=== PATIENT | female | born 1970 | race Caucasian/White ===

== ENCOUNTER 2018-07-22 21:12 | Inpatient (IN) | payer BC ==
[~2018-07-22] VITALS: Ht 152.4 cm; Wt 154.2 kg
--- NOTE | ~2018-07-22 | HC ---
[facility] [place] [address] CONSULTATION Name: REINALDO HANKS Room #: 360-P [facility] IN M.R.#: [id number] Admission: 07/22/18 ������������������ Attend Phys: Stan Basilio MD Discharge: ������������������ Date of : 66 Report #: [id number] THIS REPORT FOR: //name// CC: Jc Basilio REFERRING PHYSICIAN: Dr. Casanova. REASON FOR REFERRAL: Dyspnea. HISTORY OF PRESENT ILLNESS: The patient is a 48-year-old female who presents to the ED with progressive dyspnea. A pulmonary consultation was requested. The patient was in her usual state of health until few days prior to presentation, she started to develop a nonproductive cough with progressive dyspnea. With progressive and worsening of dyspnea, she presents to the Emergency Department. In the ER, the patient's saturation on room air was said to be 54%. Otherwise, no recent febrile illness, sore throat, productive cough, night sweats or chills. Of note, the patient's estimated BMI is around 66. Family notes the patient does snore. She does have trouble with daytime fatigue and sleepiness. PAST MEDICAL HISTORY: Notable for morbid obesity, hypertension. Bilateral tubal ligation, left knee surgery. ALLERGIES: None to medications. HOME MEDICATIONS: List incomplete. FAMILY HISTORY: Noncontributory. SOCIAL HISTORY: The patient has smoked for about 20 years, quit a few years ago. She drinks occasionally. REVIEW OF SYSTEMS: As mentioned above, otherwise 10-point system review negative. PHYSICAL EXAMINATION: GENERAL: She appears mild to moderately dyspneic. She appears sleepy. She was snoring when I entered the room. VITAL SIGNS: Temperature is 101.0 degrees Fahrenheit, pulse is 90, respiratory rate is 20, blood pressure 136/81 mmHg, saturation 94%. [facility] [address] [place] [address] CONSULTATION Name: REINALDO HANKS Room #: 360-P [facility] IN [facility]#: [id number] Admission: 07/22/18 ������������������ Attend Phys: Stan Basilio MD Discharge: ������������������ Date of : 66 Report #: [id number] HEENT: Normocephalic, atraumatic. NECK: Supple, without lymphadenopathy or thyromegaly. CHEST: Breath sounds are distant. No obvious wheezes or rales. CARDIOVASCULAR: Normal S1, S2. There is no murmur or gallop. There is no JVD. There is no carotid bruit. Pulses are 2+/4+ bilaterally. ABDOMEN: Morbidly obese, soft, nontender, no masses felt. GENITOURINARY AND RECTAL: Deferred. EXTREMITIES: Trace edema, no cyanosis or clubbing. NEUROLOGIC: Grossly intact. LABORATORY DATA: Portable chest x-ray and CT chest angiogram reviewed. This shows patchy bilateral infiltrates, greater in the right than the left. Cardiomegaly is present. Pulmonary vascular congestion is also noted. Influenza A and B screen is negative. BNP is 600. D-dimer is slightly elevated at 0.68. Of note, the CT chest angiogram showed no obvious evidence of pulmonary embolus. EKG shows sinus tachycardia, poor R-wave progression. Electrolytes normal. Liver enzymes are grossly unremarkable. WBC 14,500, hemoglobin is fair at 14.9, platelets are normal. Aerial blood gas revealed pH 7.36, pCO2 of 54, pO2 of 126, FiO2 of 100%. IMPRESSION: 1. Acute on chronic hypoxic hypercapnic respiratory failure in this 48-year-old female. Chest x-ray and CT chest shows patchy bilateral infiltrates. She is febrile. Pneumonia is likely. Possible atypical pneumonia. 2. Chronic hypercapnic respiratory failure, morbid obesity. Suspect probable obesity hypoventilation syndrome with sleep apnea. 3. Remote history of tobacco use, cannot rule out possibility of chronic obstructive pulmonary disease. 4. Morbid obesity as mentioned above. Suspect underlying sleep apnea. Would recommend outpatient sleep study. 5. Hypertension. RECOMMENDATION: Agree with broad spectrum antibiotics. DVT and GI prophylaxis recommended. The patient will benefit from outpatient sleep study along with pulmonary functions. Consultation with Bariatric Medicine may also be helpful. Thank you for this consultation. ��������������������������������������������� ���������������������������������������� By: ��������������������������������������������� 1726 1514 Stanton Mora MD /nt
[2018-07-22 21:40] LABS: HEMATOCRIT 46.5 % (37.0-47.0); HEMOGLOBIN 14.9 gm/dL (12.0-15.0); MCH 28.1 pg (26.0-34.0); MCHC 32.1 g/dL (28.0-37.0); MCV 87.8 fL (80.0-100.0); PLATELET COUNT 256 thou/uL (150-400); RDW 14.7 % (10.5-14.5); WBC 14.5 thou/uL (4.0-11.0)
[2018-07-22 21:47] LABS: BE(vivo) 3.5 mmol/L (-2 to +3); HCO3 30.3 mmol/L (22.0-26.0); PCO2 54.3 mmHg (35.0-45.0); PO2 123.2 mmHg (80.0-100.0); pH 7.364 (7.360-7.450); sO2 98.3 % (92.0-98.0)
[2018-07-22 21:50] LABS: ANION GAP 9 mmol/L (7-16); BUN 16 mg/dL (7-18); CALCIUM 9.1 mg/dL (8.5-10.1); CHLORIDE 101 mmol/L (98-107); CO2 30 mmol/L (21-32); CREATININE 0.9 mg/dL (0.6-1.0); GLUCOSE 163 mg/dL (74-106); SODIUM 140 mmol/L (136-145)
[2018-07-22 22:01] LABS: ALBUMIN 3.3 g/dL (3.4-5.0); DIRECT BILIRUBIN 0.1 mg/dL (<0.1-0.3); SGOT 14 U/L (15-37); SGPT 23 U/L (30-65); TOTAL BILIRUBIN 0.6 mg/dL (<0.1-1.0); TOTAL PROTEIN 7.3 g/dL (6.4-8.2); TROPONIN-I <0.06 ng/mL (<0.06)
[2018-07-22 22:39] LABS: ABSOLUTE NEUTROPHILS 12.5 thou/uL (1.4-8.2); ATYPICAL LYMPHS 1 %; NUCLEATED RBCS 1 /100WBC
[2018-07-23] VITALS (8 sets, daily range): BP systolic 114–159; BP diastolic 64–86
[2018-07-23 07:06] LABS: CHOLESTEROL 175 mg/dL (<200); HDL CHOLESTEROL 45 mg/dL (>40); LDL CHOLESTEROL 110 mg/dL (<100); SERUM ASSESSMENT Clear; TC:HDL 3.9 Ratio (Not establshd); TRIGLYCERIDE 100 mg/dL (<150); VLDL 20 mg/dL (<40)
[2018-07-23 23:08] LABS: GLYCOHEMOGLOBIN (HGB A1C) 6.2 % (4.8-5.6)
[2018-07-24 03:39] VITALS: BP 047/92
[2018-07-24 10:48] VITALS: BP 125/73
[2018-07-24 11:34] LABS: BASOPHILS 0.7 % (0.0-2.0); EOSINOPHILS 1.7 % (0.0-3.0); HEMATOCRIT 41.4 % (37.0-47.0); HEMOGLOBIN 13.4 gm/dL (12.0-15.0); LYMPHOCYTES 10.2 % (24.0-44.0); MCH 28.6 pg (26.0-34.0); MCHC 32.4 g/dL (28.0-37.0); MCV 88.4 fL (80.0-100.0); MONOCYTES 7.2 % (1.0-8.0); PLATELET COUNT 283 thou/uL (150-400); POLYS 80.2 % (36.0-66.0); RBC 4.68 mil/uL (4.20-5.00); RDW 14.7 % (10.5-14.5); WBC 9.9 thou/uL (4.0-11.0)
[2018-07-24 11:45] LABS: CALCIUM 9.1 mg/dL (8.5-10.1); CREATININE 0.8 mg/dL (0.6-1.0); POTASSIUM 4.3 mmol/L (3.5-5.1)
--- NOTE | 2018-07-24 13:27 | EKG ---
[place] [address] 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: jacinto : 1970 Requested By: Bouchra Taylor Order Number: [id number] MD: James Mejia Measurements Intervals [place] Rate: 110 P: 54 OK: 168 QRS: 77 QRSD: 90 T: 38 QT: 336 QTc: 455 Interpretive Statements Sinus tachycardia Abnormal R-wave progression, late transition No previous ECG available for comparison Electronically Signed On 07-24-2018 13:26:54 CDT by James Mejia [email or web address] ��������������������������������������������� <ELECTRONICALLY SIGNED> ���������������������������������������� By: James Mejia MD, [facility] ��������������������������������������������� 07/24/18 1326 [id number] James Mejia MD, FACC /EPI
[2018-07-24 16:36] VITALS: BP 131/69
[2018-07-24 19:29] VITALS: BP 150/86
[2018-07-25 04:20] VITALS: BP 129/79
[2018-07-25 05:27] LABS: HEMATOCRIT 43.1 % (37.0-47.0); HEMOGLOBIN 13.8 gm/dL (12.0-15.0); MCH 28.2 pg (26.0-34.0); MCHC 32.1 g/dL (28.0-37.0); RBC 4.9 mil/uL (4.20-5.00); RDW 14.6 % (10.5-14.5); WBC 8.6 thou/uL (4.0-11.0)
[2018-07-25 05:40] LABS: CALCIUM 9.1 mg/dL (8.5-10.1); CREATININE 0.8 mg/dL (0.6-1.0); POTASSIUM 4.7 mmol/L (3.5-5.1)
[2018-07-25 07:35] VITALS: BP 132/78
--- NOTE | 2018-07-25 09:39 | 2DMMODE ---
[facility] [address] [place] [address] 2 D/M-MODE ECHOCARDIOGRAM Name: REINALDO HAKNS Shanice Room #: 360-P [facility] IN .R.#: [id number] ������������� Admission: 07/22/18 ������������� Attend Phys: Stan Basilio MD Discharge: ��� ������������� ��� Date of : 66 Date of Service: 07/25/18 0939 �� Report #: [id number] �������� ��������������������������������������������[id number] THIS REPORT FOR: //name// APPROVED REPORT Study performed: 07/25/2018 08:05:21 EXAM: Comprehensive 2D, Doppler, and color-flow Echocardiogram Patient Location: Bedside Room #: 360 Status: routine BSA: 2.34 HR: 98 bpm BP: 129/79 mmHg Rhythm: NSR Other Information Study Quality: Technically Limited and Technically Difficult Technically limited study due to body habitus, inability to position patient. Indications Hypertension/HDD SOA Echo Enhancing Agent Indication: Endocardial border delineation Agent(s) / Amount(s) Used: Optison 3 cc 2D Dimensions IVSd: 17.43 (7-11mm) LVOT Diam: 21.09 (18-24mm) LVDd: 41.52 mm PWd: 16.71 (7-11mm) Ascending Ao: 29.74 (22-36mm) LVDs: 27.91 (25-40mm) Aortic Root: 30.17 mm Aortic Valve AoV Peak Matthew.: 1.99 m/s AO Peak Gr.: 16.93 mmHg LVOT Max P.70 mmHg LVOT Max V: 1.19 m/s POORNIMA Vmax: 2.09 cm2 Mitral Valve E/A Ratio: 0.8 [facility] [address] [place] [address] 2 D/M-MODE ECHOCARDIOGRAM Name: REINALDO HANKS Room #: 360-P ADM IN ..#: [id number] ������������� Admission: 07/22/18 ������������� Attend Phys: Stan Basilio MD Discharge: ��� ������������� ��� Date of : 66 Date of Service: 07/25/18 0939 �� Report #: [id number] �������� ��������������������������������������������[id number] MV Decel. Time: 233.62 ms MV E Max Matthew.: 1.05 m/s MV A Matthew.: 1.35 m/s MV PHT: 67.75 ms Pulmonary Valve PV Peak Matthew.: 1.37 m/s PV Peak Gr.: 7.52 mmHg Left Ventricle The left ventricle is normal size. There is normal LV segmental wall motion. Moderate to severe concentric left ventricular hypertrophy. The left ventricular systolic function is normal. The left ventricular ejection fraction is within the normal range. LVEF is 65-70%. Mild diastolic dysfunction is present (impaired relaxation pattern). Right Ventricle Right ventricle is not well visualized. Atria Left atrium is not well visualized. Right atrium is not well visualized. Aortic Valve The aortic valve is normal in structure. No aortic regurgitation is present. There is no aortic valvular stenosis. Mitral Valve The mitral valve appears grossly normal in structure. There is no mitral valve regurgitation noted. No evidence of mitral valve stenosis. Tricuspid Valve The tricuspid valve is not well visualized. Pulmonic Valve The pulmonary valve is normal in structure. There is no pulmonic valvular regurgitation noted. Great Vessels The aortic root is normal in size. Ascending aorta is not well visualized. IVC is not visualized. Pericardium There is no pericardial effusion. [facility] [place] [address] 2 D/M-MODE ECHOCARDIOGRAM Name: REINALDO HANKS Shanice Room #: 360-P ADM IN M.R.#: [id number] ������������� Admission: 07/22/18 ������������� Attend Phys: Stan Basilio MD Discharge: ��� ������������� ��� Date of : 66 Date of Service: 07/25/18938 �� Report #: [id number] �������� ��������������������������������������������[id number] <Conclusion> The left ventricular systolic function is normal. There is normal LV segmental wall motion. LVEF is 65-70%. Mild diastolic dysfunction The aortic valve is normal in structure. No aortic regurgitation or stenosis The mitral valve appears grossly normal in structure. No mitral valve regurgitation. Pulmonary artery pressure could not be reliably ascertained There is no pericardial effusion. ��������������������������������������������� <ELECTRONICALLY SIGNED> ���������������������������������������� By: James Mejia MD, [facility] ��������������������������������������������� 07/25/1839 0939 James Mejia MD, FACC /INF
[2018-07-25 11:39] VITALS: BP 147/85
[2018-07-25 16:25] VITALS: BP 133/82
[2018-07-25 20:10] VITALS: BP 141/73
[2018-07-26 05:00] VITALS: BP 135/78
[2018-07-26 05:33] LABS: HEMATOCRIT 43.1 % (37.0-47.0); MCH 28.7 pg (26.0-34.0); MCHC 32.6 g/dL (28.0-37.0); MCV 88.1 fL (80.0-100.0); RBC 4.89 mil/uL (4.20-5.00); RDW 14.5 % (10.5-14.5); WBC 8.2 thou/uL (4.0-11.0)
[2018-07-26 05:49] LABS: CREATININE 0.7 mg/dL (0.6-1.0); POTASSIUM 4.6 mmol/L (3.5-5.1)
[2018-07-26 07:32] VITALS: BP 137/77
[2018-07-26 12:21] VITALS: BP 122/77
[2018-07-26 15:30] VITALS: BP 151/81
[2018-07-26 19:54] VITALS: BP 120/73
[2018-07-27 04:20] VITALS: BP 143/90
[2018-07-27 04:30] VITALS: BP 143/90
[2018-07-27 07:34] VITALS: BP 119/55
[2018-07-27 09:30] LABS: HEMATOCRIT 44.7 % (37.0-47.0); HEMOGLOBIN 14.5 gm/dL (12.0-15.0); MCH 28.3 pg (26.0-34.0); MCHC 32.5 g/dL (28.0-37.0); RBC 5.13 mil/uL (4.20-5.00); RDW 14.6 % (10.5-14.5); WBC 7.8 thou/uL (4.0-11.0)
[2018-07-27 09:40] LABS: CALCIUM 9.1 mg/dL (8.5-10.1); CREATININE 0.8 mg/dL (0.6-1.0); MAGNESIUM 2.3 mg/dL (1.8-2.4); POTASSIUM 4.3 mmol/L (3.5-5.1)
[2018-07-27 12:16] VITALS: BP 132/85
[2018-07-27 16:10] VITALS: BP 120/71
[2018-07-27 19:12] VITALS: BP 126/75
[2018-07-28 03:53] VITALS: BP 124/74
[2018-07-28 05:28] LABS: HEMATOCRIT 44.4 % (37.0-47.0); HEMOGLOBIN 14.3 gm/dL (12.0-15.0); MCH 28.3 pg (26.0-34.0); MCHC 32.1 g/dL (28.0-37.0); RBC 5.05 mil/uL (4.20-5.00); RDW 14.4 % (10.5-14.5); WBC 8.5 thou/uL (4.0-11.0)
[2018-07-28 05:43] LABS: CALCIUM 9.4 mg/dL (8.5-10.1); CREATININE 0.7 mg/dL (0.6-1.0); MAGNESIUM 2.4 mg/dL (1.8-2.4); POTASSIUM 4.1 mmol/L (3.5-5.1)
[2018-07-28 07:23] VITALS: BP 125/71
[2018-07-28 11:24] VITALS: BP 125/77
[2018-07-28] MEDS ORDERED: MUCINEX600 MG PO (12:20)
[2018-07-28] MEDS ORDERED: CEFDINIR300 MG PO (12:20)
[2018-07-28] MEDS ORDERED: LASIX 20 MG TAB20 MG PO (12:20)
[2018-07-28] MEDS ORDERED: VENTOLIN HFA 1818 GM INH (12:21)
[2018-07-28 13:04] VITALS: BP 125/77
[2018-07-28 13:34] VITALS: BP 125/77
[2018-07-28] MEDS ORDERED: HOME OXYGEN (14:13)
[2018-07-28 14:44] VITALS: BP 125/77
== END 2018-07-28 17:34 | disposition home or self-care (01) | DRG 291 ==
LOC: ER 21:12 → EROBS 23:11 → 3W 23:11
PROVIDERS: Emergency Medicine; Internal Medicine; Nurse Practitioner Acute Care; ADMIT Hospitalist
DX: I11.0 Hypertensive heart disease with heart failure (principal); J18.9 Pneumonia, unspecified organism; J96.21 Acute and chronic respiratory failure with hypoxia; J96.22 Acute and chronic respiratory failure with hypercapnia; Z68.44 Body mass index [BMI] 60.0-69.9, adult; I50.33 Acute on chronic diastolic (congestive) heart failure; E66.01 Morbid (severe) obesity due to excess calories; E87.70 Fluid overload, unspecified; G47.33 Obstructive sleep apnea (adult) (pediatric); Z87.891 Personal history of nicotine dependence; Z82.2 Family history of deafness and hearing loss; Z79.899 Other long term (current) drug therapy
CPT/HCPCS: 10879

== ENCOUNTER 2021-04-19 19:18 | Inpatient (IN) | payer BC ==
[~2021-04-19] VITALS: Ht 144.8 cm; Wt 155.3 kg
[~2021-04-19 19:18] MED LIST: CEFDINIR300 MG PO; HOME OXYGEN; LASIX 20 MG TAB20 MG PO; MUCINEX600 MG PO; VENTOLIN HFA 1818 GM INH
[2021-04-19 19:28] VITALS: BP 189/87
[2021-04-19 19:41] LABS: BE(vivo) 3.3 mmol/L (-2 to +3); HCO3 33.4 mmol/L (22.0-26.0); PCO2 74.3 mmHg (35.0-45.0); PO2 95.4 mmHg (80.0-100.0); sO2 96.1 % (92.0-98.0)
[2021-04-19 19:42] LABS: pH 7.271 (7.360-7.450)
[2021-04-19 19:50] LABS: ABSOLUTE NEUTROPHILS 5.1 thou/uL (1.4-8.2); BASOPHILS 3.8 % (0.0-2.0); EOSINOPHILS 0.8 % (0.0-3.0); HEMATOCRIT 52.4 % (37.0-47.0); HEMOGLOBIN 16.9 gm/dL (12.0-15.0); LYMPHOCYTES 9.1 % (24.0-44.0); MCH 27.6 pg (26.0-34.0); MCHC 32.3 g/dL (28.0-37.0); MCV 85.5 fL (80.0-100.0); PLATELET COUNT 243 thou/uL (150-400); POLYS 79.3 % (36.0-66.0); RBC 6.13 mil/uL (4.20-5.00); RDW 16.8 % (10.5-14.5); WBC 6.4 thou/uL (4.0-11.0)
[2021-04-19 21:00] LABS: ALBUMIN 3.2 g/dL (3.4-5.0); CALCIUM 8.2 mg/dL (8.5-10.1); CREATININE 0.5 mg/dL (0.6-1.0); TOTAL BILIRUBIN 0.5 mg/dL (0.2-1.0); TOTAL PROTEIN 6.6 g/dL (6.4-8.2)
[2021-04-19 21:01] LABS: POTASSIUM 5.9 mmol/L (3.5-5.1)
[2021-04-19 23:11] VITALS: BP 153/46
[2021-04-19 23:32] VITALS: BP 136/81
[2021-04-19 23:50] LABS: BE(vivo) 1.6 mmol/L (-2 to +3); HCO3 32.9 mmol/L (22.0-26.0); PO2 78.1 mmHg (80.0-100.0); pH 7.214 (7.360-7.450); sO2 92.3 % (92.0-98.0)
[2021-04-19 23:51] LABS: PCO2 83.3 mmHg (35.0-45.0)
--- NOTE | 2021-04-20 01:21 | NUR ---
PREETI, AND 2 RN'S AT BEDSIDE X45 MINUTES FOR PT EDUCATION ABOUT BIPAP AND IMPORTANCE TO AVOID FURTHER DECOMPENSATION. PT REFUSED. PT PROVIDED OPPORTUNITIES TO ASK QUESTIONS.
--- NOTE | 2021-04-20 01:30 | NUR ---
THIS RN WITNESSED CONVERSATION WITH PATIENT, HER SIGNIFICANT OTHER AND BROCK ÁLVAREZ FACTORY LABORER IN REGARDS TO PLAN OF CARE PATIENT IS ALERT AND ORIENTATED X 4 AT THIS TIME BUT REQUESTS PHONE CONSULTATION WITH HER SIGNIFICANT OTHER TO DISCUSS PLAN OF CARE. BENEFITS AND RISKS ARE DISCUSSED AT [facility] WITH PATIENT AND SIGNIFICANT OTHER ARE ADVISED THAT WITHOUT BIPAP/CPAP OR INTUBATION PATIENT WILL PROBABLY CONTINUE TO DETERIORATE AND SHE WILL PATIENT REFUSED ANY ASSISTED VENTILATION CPAP/BIPAP OR INTUBATION AND VERBALIZES WITH HER SIGNIFICANT OTHERS SUPPORT THAT IF SHE IS UNABLE TO SUPPORT HER AIRWAY SHE ACCEPTS THE CONCEQUENCES ARE WORSENING HEALTH STATUS UP TO AND INCLUDING . FURTHER ATTEMPTS AT AGGRESSIVE AIRWAY MANAGENT ARE CEASED AT THIS TIME
[2021-04-20 05:49] LABS: HEMATOCRIT 50.1 % (37.0-47.0); HEMOGLOBIN 15.7 gm/dL (12.0-15.0); MCH 27.2 pg (26.0-34.0); MCHC 31.4 g/dL (28.0-37.0); MCV 86.8 fL (80.0-100.0); RBC 5.78 mil/uL (4.20-5.00); RDW 16.9 % (10.5-14.5); WBC 6.4 thou/uL (4.0-11.0)
[2021-04-20 06:03] LABS: CALCIUM 8.1 mg/dL (8.5-10.1); CREATININE 0.7 mg/dL (0.6-1.0)
[2021-04-20 06:07] LABS: POTASSIUM 4.4 mmol/L (3.5-5.1)
[2021-04-20 07:13] LABS: BE(vivo) 2.3 mmol/L (-2 to +3); HCO3 33.2 mmol/L (22.0-26.0); PO2 98.6 mmHg (80.0-100.0)
[2021-04-20 07:14] LABS: PCO2 81.4 mmHg (35.0-45.0); pH 7.229 (7.360-7.450)
[2021-04-20 08:29] VITALS: BP 107/62
--- NOTE | 2021-04-20 12:58 | EKG ---
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: GEOFF : 1970 Requested By: Jose Nguyen Order Number: [id number] MD: James Mejia Measurements Intervals [place] Rate: 107 P: 52 [place]: 154 QRS: 116 QRSD: 85 T: 46 QT: 326 QTc: 435 Interpretive Statements Sinus tachycardia Left posterior fascicular block Poor R wave progression Compared to ECG 07/22/2018 21:21:40 [place] is shifted rightward Electronically Signed On 04-20-2021 12:58:39 RIM FIRE CHARGER OPERATOR by James Mejia [email or web address] <ELECTRONICALLY SIGNED> By: James Mejia MD, [facility] 04/20/21 1258 53 53 James Mejia MD, FACC /EPI
[2021-04-20 20:05] VITALS: BP 131/84
[2021-04-20 21:06] VITALS: BP 110/78
[2021-04-20] MEDS ORDERED: LASIX 20 MG TAB20 MG PO (22:21)
[2021-04-20 23:30] VITALS: BP 113/66
[2021-04-21 03:47] VITALS: BP 120/81
--- NOTE | 2021-04-21 06:15 | NUR ---
Arrived from ER at on Optiflow 45L/90% with O2 sat in the low to mid 90's. Once she got situated , O2 sat in the mid to upper 90's. RT titrated her down to 45L/80% this am and has been maintaining her O2 sat in the mid 90's. She does get short of breath with exertion. MRSA swab and urine sample sent to lab. Cont. on enhanced precaution,afebrile. Pt. premedicated as ordered prior to Actemra. Up with SBA to commode. She slept some.
[2021-04-21 07:23] VITALS: BP 124/76
[2021-04-21 07:23] LABS: HEMATOCRIT 50.4 % (37.0-47.0); HEMOGLOBIN 15.3 gm/dL (12.0-15.0); MCH 26.5 pg (26.0-34.0); MCHC 30.3 g/dL (28.0-37.0); MCV 87.6 fL (80.0-100.0); PLATELET COUNT 232 thou/uL (150-400); RBC 5.76 mil/uL (4.20-5.00); RDW 17.1 % (10.5-14.5)
[2021-04-21 07:25] LABS: INR 1.02; PROTIME 11.1 Seconds (10.5-12.1)
[2021-04-21 07:40] LABS: ALBUMIN 2.8 g/dL (3.4-5.0); CALCIUM 8.1 mg/dL (8.5-10.1); CREATININE 0.9 mg/dL (0.6-1.0); POTASSIUM 4.7 mmol/L (3.5-5.1); TOTAL BILIRUBIN 0.3 mg/dL (0.2-1.0); TOTAL PROTEIN 6.2 g/dL (6.4-8.2)
[2021-04-21 10:52] LABS: ABSOLUTE NEUTROPHILS 2.9 thou/uL (1.4-8.2); PLATELET ESTIMATE NORMAL
[2021-04-21 15:45] VITALS: BP 161/99
[2021-04-21 15:46] VITALS: BP 146/101
--- NOTE | 2021-04-21 17:28 | NUR ---
PT A/O X 4. PT UP TO CHAIR FOR FEW HOURS THIS AFTERNOON. PT HAS NO COMPLAINTS OF PAIN. PT ON OPTIFLOW 45L 80% FI02. PT UP TO BSC, AND IS STEADY. PT HAD EXTENSIVE CONVERSATION WITH THIS RN ABOUT PT'S OXYGEN LEVELS AND VACCINATION STATUS. PT NOW INTERSTED IN VACCINATION. FALL PRECAUTIONS IN PLACE, WILL CONTINUE TO MONITOR.
--- NOTE | 2021-04-21 19:07 | HC ---
[facility] [place] [place] [address] CONSULTATION Name: REINALDO HANKS Room #: 358-P [facility] IN M.R.#: [id number] Admission: 04/20/21 Attend Phys: Syeda Cary MD Discharge: Date of : 66 Report #: [id number] THIS REPORT FOR: cc: Stan Rebolledo MD, Kirk D. MD Geha, Daniel J. MD ~ DATE OF SERVICE: 04/20/2021 INFECTIOUS DISEASES CONSULTATION REASON FOR CONSULTATION: I was asked to evaluate concerning COVID-19 pneumonia. HISTORY OF PRESENT ILLNESS: The patient is a 51-year-old, underlying history of morbid obesity, obstructive sleep apnea and congestive heart failure, presents now with a 3-week history of progressive nonproductive cough and shortness of breath. No pleuritic chest pain. She lives in her household with her family and all of which have had respiratory tract infection issues over the last month. She states that they all got better, but she has progressed, presents now with respiratory failure. She has had no pleuritic chest pain or hemoptysis. She has had no nausea, vomiting or diarrhea. No dysuria or frequency. She typically takes low dose of Lasix to control her peripheral edema. She has not been COVID vaccinated. REVIEW OF SYSTEMS: A 14-point review of system was negative other than what has been described above. PAST MEDICAL HISTORY: Morbid obesity, hypertension, pneumonia, congestive heart failure, obstructive sleep apnea. FAMILY HISTORY: Diabetes. SOCIAL HISTORY: Past smoker, no significant alcohol. No HIV risk factors. No tuberculosis exposure. ALLERGIES: None known. MEDICATIONS: As noted on her MAR, which were reviewed. PHYSICAL EXAMINATION: GENERAL: The patient was afebrile and hemodynamically stable. She was on 40 liters of oxygen per high flow. She was sitting up in her chair. She had a nonproductive cough. She was morbidly obese. She has no rashes or decubiti. No palpable adenopathy. HEENT: Eyes without scleral icterus and mouth without mucositis. NECK: Supple. LUNGS: Coarse breath sounds posteriorly without consolidation. [facility] [address] [place] [address] CONSULTATION Name: REINALDO HANKS Shanice Room #: 358-P [facility] IN M.R.#: [id number] Admission: 04/20/21 Attend Phys: Syeda Cary MD Discharge: Date of : 66 Report #: [id number] HEART: Regular without murmur. ABDOMEN: Obese, soft with a large abdominal pannus, which was indurated due to edema. EXTREMITIES: With 1+ peripheral edema in the lower extremities. No clubbing or cyanosis. NEUROLOGIC: Cranial nerves intact. Strength in the upper and lower extremities was symmetric and within normal limits. PSYCHIATRIC: Mood without anxiety or depression. LABORATORY STUDIES: Reviewed. ABG reviewed. IMAGING: CT scan of the chest reviewed. IMPRESSION: A 51-year-old with a 3-week history of progressive respiratory decline due to COVID-19. This is in the setting of underlying obstructive sleep apnea and diastolic heart failure. She has morbid obesity, mild liver enzyme abnormality in a patient, unvaccinated for COVID-19, which puts her at very high risk for further respiratory compromise. She is already on high-flow oxygen. RECOMMENDATION: She is beyond the time that remdesivir will be of benefit. We will treat with corticosteroids and Actemra. Discussed with the patient. PLAN OF CARE: She was in agreement. She will remain on COVID isolation unit for further cardiopulmonary monitoring. Follow serial laboratory studies and chest x-ray. <ELECTRONICALLY SIGNED> By: Oliver Godfrey MD 04/21/21 [id number] Oliver Godfrey MD /nt
[2021-04-21 19:30] VITALS: BP 123/76
[2021-04-22 05:10] VITALS: BP 137/85
[2021-04-22 06:20] LABS: HEMATOCRIT 46.9 % (37.0-47.0); HEMOGLOBIN 14.7 gm/dL (12.0-15.0); MCH 26.8 pg (26.0-34.0); MCHC 31.2 g/dL (28.0-37.0); MCV 85.7 fL (80.0-100.0); PLATELET COUNT 205 thou/uL (150-400); RBC 5.48 mil/uL (4.20-5.00); RDW 16.3 % (10.5-14.5); WBC 2.5 thou/uL (4.0-11.0)
[2021-04-22 06:53] LABS: CALCIUM 8.1 mg/dL (8.5-10.1); CREATININE 0.7 mg/dL (0.6-1.0); MAGNESIUM 2.1 mg/dL (1.8-2.4); PHOSPHORUS 3.3 mg/dL (2.5-4.9)
[2021-04-22 07:50] VITALS: BP 144/94
[2021-04-22 10:55] LABS: ABSOLUTE NEUTROPHILS 1.7 thou/uL (1.4-8.2); ANISOCYTOSIS 1+
[2021-04-22 11:56] VITALS: BP 154/88
[2021-04-22 15:08] LABS: HIV ANTIBODY Non Reactive (Non Reactive)
--- NOTE | 2021-04-22 16:13 | NUR ---
INITIAL ASSESSMENT: SW reviewed chart and spoke with nursing and attending physician. Pt was admitted from home due to respiratory failure. Pt with hx HTN/CHF/obesity. Pt placed in Enhanced Isolation due to COVID. Per chart, pt has not received a COVID vaccination. Pt is afebrile and on optiflow. Pt is on IV abx and IV steorids. SW placed several calls to pt's room. No answer. Per chart, pt is alert/orientated x 4. Pt lives at home with family. Therapy evals to be ordered when pt is able to participate. SW is following to assist as needed with discharge planning.
--- NOTE | 2021-04-22 17:31 | NUR ---
A #4F MIDLINE WAS PLACED FOR IV ACCESS. THE CEPHALIC VEIN VS CATHETER RATIO WAS LESS THAN 28% THE 20CM LINE WAS ADVANCED WITHOUT DIFFICULTY. GAUZE WAS USED AND THE LINE WAS SECURE
[2021-04-22 20:16] VITALS: BP 153/92
[2021-04-23 03:10] LABS: HEMATOCRIT 48.7 % (37.0-47.0); HEMOGLOBIN 15.3 gm/dL (12.0-15.0); MCH 26.8 pg (26.0-34.0); MCHC 31.4 g/dL (28.0-37.0); MCV 85.4 fL (80.0-100.0); RBC 5.7 mil/uL (4.20-5.00); RDW 16.4 % (10.5-14.5); WBC 2.1 thou/uL (4.0-11.0)
[2021-04-23 04:17] LABS: CALCIUM 8.2 mg/dL (8.5-10.1); CREATININE 0.7 mg/dL (0.6-1.0); POTASSIUM 4.2 mmol/L (3.5-5.1)
[2021-04-23 05:41] VITALS: BP 169/108
[2021-04-23 07:37] VITALS: BP 153/99
--- NOTE | 2021-04-23 14:58 | NUR ---
SW reviewed chart and spoke with nursing and attending physician. Pt remains in Enhanced Isolation due to COVID. Pt is afebrile and on optiflow. Pt is on IV abx and IV steroids. SW spoke with pt via phone. Introduced role of SW. Pt appears to be alert/orientated x 4. Pt lives at home with family. Prior to admission, pt was independent with ADLs. No use of DME. No hx of services or post-acute placement. Pt's PCP is Dr. Stan Rebolledo. Plan is for pt to discharge home when medically stable. Therapy evals to be ordered when pt is able to participate. SW is following to assist as needed with discharge planning.
[2021-04-23 15:55] VITALS: BP 152/99
[2021-04-23 18:09] LABS: BE(vivo) 10.3 mmol/L (-2 to +3); HCO3 38.4 mmol/L (22.0-26.0); PCO2 63.6 mmHg (35.0-45.0); PO2 63.1 mmHg (80.0-100.0); pH 7.399 (7.360-7.450); sO2 91.5 % (92.0-98.0)
--- NOTE | 2021-04-23 18:31 | NUR ---
ASSUMED PATIENT CARE AT 0700. PATIENT WAS ON OPTIFLOW AND NRB WITH O2 SAT 90%. CUELLAR INSERTED. PATIENT IS ON 100% BIPAP. UPDATED WITH FAMILY THREE TIMES. NOT TOWARDS POC GOALS,
[2021-04-23 19:33] VITALS: BP 184/92
[2021-04-24] VITALS (42 sets, daily range): BP systolic 109–186; BP diastolic 70–106
--- NOTE | 2021-04-24 02:45 | NUR ---
PT WAS PLACED ON BIPAP DURING DAY SHIFT. 02 SATURATIONS WERE A FIGHT TO KEEP UP ABOVE 90%. PT WOULD FIDGETS WITH MASK AND ALARMS WOULD SOUND. REEDUCATED PT ON MULTIPLE OCCASIONS ABOUT IMPORTANCE. BODY MECHANICS WHEN SLEEPING WOULD ALSO HINDER. NATY ADDED TO SITUATION. DR. SUH WHEN ROUNDING SAID PT SHOULD BE MOVED TO ICU. CONSULTED WITH OCEAN EXPORT AGENT ABOUT SITUATION. DISCUSSED WITH PT ABOUT LIMITATIONS WITH DNR. PT AGREED TO CHANGE STATUES TO FULL CODE. SPOKE TO DR. BAKER ALSO. RECEIVED ORDERS TO MOVE PT TO ICU AND ORDERED AM CHEST X-RAY. 0200 CALLED REPORT AND MOVED PT TO ICU.
[2021-04-24 05:18] LABS: HEMOGLOBIN 15.1 gm/dL (12.0-15.0)
[2021-04-24 05:21] LABS: HEMATOCRIT 46.9 % (37.0-47.0); MCH 26.9 pg (26.0-34.0); MCHC 32.1 g/dL (28.0-37.0); MCV 83.9 fL (80.0-100.0); RBC 5.59 mil/uL (4.20-5.00); RDW 16.3 % (10.5-14.5)
[2021-04-24 05:39] LABS: WBC 1.8 thou/uL (4.0-11.0)
[2021-04-24 05:49] LABS: CALCIUM 8.1 mg/dL (8.5-10.1); CREATININE 0.7 mg/dL (0.6-1.0); POTASSIUM 3.9 mmol/L (3.5-5.1)
--- NOTE | 2021-04-24 06:46 | NUR ---
ASSUME CARE 0250 FROM [facility]. PT ON BIPAP AT 100% FIO2. A/O X 4. DENIES ANY PAIN. POOR TOLERANCE TO ATIVITY. SOB NOTED WITH EXERTION. PT ALSO HAS ANXIETY WHICH CONTRIBUTES GREATY TO HER DYSPNEA. ON PRECEDEX TO HELP PT TOLERATE BIPAP. SETTINGS CHANGED ON BIPAP FROM / TO 18/ AND PT STILL SATS ABOUT 87%-90%. ASSESSMENT CHARTED. PROGRESSING POORLY TOWARDS POC. PLAN IS TO CONTINUE TO MONITOR AND MANAGE RESP FUNCTION. WILL CONTINUE TO MONITOR AND FOLLOW WITH POC
--- NOTE | 2021-04-24 08:19 | EKG ---
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
--- NOTE | 2021-04-24 08:20 | EKG ---
[place] [address] [facility] [place] [address] ELECTROCARDIOGRAM REPORT Name: AKIN HANKSSHANTA Prasad Room #: 243-P ADM IN M.R.#: [id number] Admission: 04/20/21 Attend Phys: Syeda Cary MD Discharge: Date of : 66 Report #: [id number] [facility] ED Test Date: 2021-04-20 Test Time: 11:43:26 Pat Name: REINALDO HANKS Department: Room: 243 P Gender: F Head Up Operator: LUIGI : 1970 Requested By: Tomas Gómez Order Number: [id number] MD: Measurements Intervals [place] Rate: 83 P: 69 ID: [id number] QRS: 132 QRSD: 90 T: 16 QT: 399 QTc: 469 Interpretive Statements Sinus rhythm Paired ventricular premature complexes ST depr, consider ischemia, inferior leads,Minimal ST elevation, lateral leads Compared to ECG 04/19/2021 19:54:40 Ventricular premature complex(es) now present Aberrant conduction of supraventricular beat(s) now present Electronically Signed On 04-21-2021 12:46:21 PEST CONTROL PILOT by Bobby Massey [email or web address] By: 1246 1143 Bobby Massey MD, FACC /EPI
--- NOTE | 2021-04-24 08:44 | NUR ---
SPOKE WITH PT THIS MORNING OVER THE PHONE, HE WAS UNDER THE IMPRESSION PT WAS GOING TO GET INTUBATED OVERNIGHT AND THAT DID NOT HAPPEN. PT REMAINS ON BIPAP AT THIS TIME, I HELPED ANSWER QUESTIONS HE HAD ABOUT HER CURRENT STATE, AND ASKED HIM IF IT WAS OK IF THE NEED AROSE IF THE MEDICAL TEAM COULD INTUBATE HER, HE WAS AGREEABLE TO IT BEFORE IT WAS "TOO LATE" HOWEVER, HE ALSO INSISTED THAT WE SPEAK TO HER ABOUT IT BEFOREHAND. I ASKED HER ABOUT THIS MORNING AND SHE SAID TO ASK HER AND FAMILY. I INFORMED HIM THAT I WOULD ASK ONE OF THE DOCTORS TO GIVE HIM AND THIER FAMILY A CALL REGARDING HER STATUS. WILL CONTINUE TO FOLLOW POC. PT CURRENT OXYGEN SATURATION IS BETWEEN 84-87% ON 100% BIPAP SETTINGS OF 18/10.
[2021-04-24 08:45] LABS: T-SPOT.TB Negative
--- NOTE | 2021-04-24 12:52 | NUR ---
SPOKE WITH PATIENT MARICRUZ WEAVER AT 1230 THIS AFTERNOON OVER THE PHONE, ANSWERED HER QUESTIONS AND UPDATED HER ON HER CURRENT VITALS. INFORMED HER AND PATIENTS WHO WAS ALSO ON THE PHONE THAT PATIENT IS NOT PRESENTLY INTUBATED AND IT IS STILL POSSIBILITY OF HER NEEDING IT SOONER THAN LATER. WAS ABLE TO TALK TO DR. BAKER DURING ROUNDING AND DR. ORANTES THIS AFTERNOON. BOTH STATED THAT THEY WOULD SPEAK TO EITHER THE PATIENT OR FAMILY ONCE AGAIN ABOUT PATIENT NEEDING INTUBATION SOONER RATHER THAN LATER. WAS ALSO ABLE TO HAVE IV TEAM RN ASSESS PT MIDLINE CATH IN RIGHT UPPER ARM. SHE WAS AGREEABLE THAT PT NEEDS TO HAVE A CENTRAL LINE PLACED INSTEAD. WILL ASK FOR PERMISSION TO PLACE THAT ORDER FROM MD. WILL CONTINUE TO FOLLOW POC. PT CURRENTLY RESTING COMFORTABLY WITH OXYGEN SATURATION OF 88% HR 66. BIPAP SETTINGS 18/10 100% FIO2.
--- NOTE | 2021-04-24 15:19 | NUR ---
SPOKE WITH PT REGARDING DESIRES TO BE FULL CODE AND DESIRES FOR POSSIBLE INTUBATION AT THIS TIME SHOULD THE NEED TO ARISE AND PATIENT WAS VERBALLY AGREEABLE TO BOTH. DR. ORANTES NOTIFIED VIA PHONE WHO INSTRUCTED ME TO CONTACT DR. BAKER REGARDING PT WISHES FOR INTUBATION. VOICEMAIL LEFT FOR DR. BAKER. WILL CONTINUE TO FOLLOW POC AND PATIENT WISHES.
--- NOTE | 2021-04-24 16:08 | NUR ---
A RIGHT IJ CENTRAL LINE WAS PLACED AFTER CONSENT OBTAINED. LINE PLACED PER HOSPITAL POLICY. THE 25CM LINE WAS ADVANCED TO 7CM EXTERNAL. A STAT CHEST XRAY WAS ORDERED TO CONFIRM PLACEMENT
--- NOTE | 2021-04-24 16:31 | NUR ---
PT BELONGINGS GIVEN TO PATIENT IN THE ER. VERIFIED ID VIA DRIVERS LICENSE. PURSE, WALLET, FEMALE PADS, WATER BOTTLE, DEODARANT. PT STILL HAS POSSESSION OF HER CELL PHONE, CAN NOT FIND PHONE CERTIFIED PROFESSIONAL MIDWIFE, PT ALSO HAS HER SHOES IN THE PT LOCKER IN ROOM 243.
--- NOTE | 2021-04-24 17:48 | NUR ---
DR. BAKER AT BEDSIDE AT 1700 ALONG WITH RT AND NURSING STAFF TO ASSIST IN INTUBATION OF THE PATIENT. AT 1715 60MG/3ML OF SUCCINYLCHOLINE GIVEN VIA IV-PUSH FOLLOWED BY 60MG/30ML ETOMIDATE IV-PUSH WITH NACL FLUSHES GIVEN BETWEEN MEDS. AT 1718 PT WAS INTUBATED WITH 7.5 ET TUBE WITH GOOD COLOR CHANGE VIA CAPNOGRAPHY, TUBE RESTING AT 24 @THE LIP. GLIDASCOPE WAS USED DURING PROCEDURE. AT 1719 4MG/4ML VERSED GIVEN FOR SEDATION. PT PLACED IN BILATERAL WRIST RESTRAINTS AT THIS TIME. OG TUBE ALSO PLACED 70 AT THE LIP. PT VENT SETTINGS VC-AC RR 28 FIO2 100% PEEP 12 VT 450
[2021-04-24 18:46] LABS: BE(vivo) 13.4 mmol/L (-2 to +3); HCO3 38.5 mmol/L (22.0-26.0); PCO2 47.3 mmHg (35.0-45.0); PO2 64.6 mmHg (80.0-100.0); pH 7.528 (7.360-7.450); sO2 94.4 % (92.0-98.0)
[2021-04-25] VITALS (46 sets, daily range): BP systolic 93–188; BP diastolic 51–104
[2021-04-25 04:11] LABS: ABSOLUTE NEUTROPHILS 1.6 thou/uL (1.4-8.2); BASOPHILS 0.7 % (0.0-2.0); HEMOGLOBIN 16.2 gm/dL (12.0-15.0); LYMPHOCYTES 27.9 % (24.0-44.0); MCH 26.4 pg (26.0-34.0); MCHC 31.7 g/dL (28.0-37.0); MCV 83.1 fL (80.0-100.0); MONOCYTES 12.4 % (1.0-8.0); PLATELET COUNT 142 thou/uL (150-400); RBC 6.14 mil/uL (4.20-5.00); RDW 16.2 % (10.5-14.5); WBC 2.8 thou/uL (4.0-11.0)
[2021-04-25 04:40] LABS: ALBUMIN 2.8 g/dL (3.4-5.0); CALCIUM 7.9 mg/dL (8.5-10.1); CREATININE 0.9 mg/dL (0.6-1.0); POTASSIUM 3.7 mmol/L (3.5-5.1); TOTAL BILIRUBIN 0.8 mg/dL (0.2-1.0)
--- NOTE | 2021-04-25 07:19 | NUR ---
ASSUME CARE 1900. PT/VITALS STABLE. NAP NOTED THROUGH THE NIGHT/ PT INTUBATED/SEDATED. ASSESSMENT CHARTED. POOR PROGRESS WITH POC. SR ONMONITOR. SOMETIMES PT MIAN'S DOWN TO 58-59BPM, BUT IS MOSTLY SINUS RHTHM ON MONITOR. DESATS WITH TURNS OR SUCTION, EASILY. NOTED ACTIVE BLEEDING, HGB 16.1 THIS AM. EXTREMITIES APPEAR CYANOTIC AND DULL.ON 100% FIO2 WITH SATS IN THE LOW 90s (92% SPO2 MAX). THIS AM PT IS AT 88% AT FIO2 100%. PLAN IS TO CONTINUE TO MONITOR AND MANAGE RESPIRATORY FUNCTION/COVID PNA. WILL CONTINUE TO FOLLOW WITH POC
[2021-04-25 09:10] LABS: BE(vivo) 11.5 mmol/L (-2 to +3); HCO3 36.1 mmol/L (22.0-26.0); PO2 58.8 mmHg (80.0-100.0); pH 7.522 (7.360-7.450); sO2 92.8 % (92.0-98.0)
--- NOTE | 2021-04-25 16:58 | NUR ---
Discussed during unit round and los. Vent, nutritional support. Covid isolation. No anticipated dc over the weekend. Will cont following as needed.
--- NOTE | 2021-04-25 17:35 | NUR ---
PT HAS HAD NO EVENTS TODAY, IS MAINTAINING OXYGEN WELL. DECREASED FIO2 FROM 100% TO 90% TODAY. FENTANYL, VERSED AND PRECEDEX REMAIN ON BOARD WITH GOOD RESULTS. PATIENT HAS GOOD URINE OUTPUT, CONTINUES TO BLEED FROM IV ACCESS SITES AND REMAINS ON LOVENOX 60MG BID. PT MAY BENEFIT FROM NUTRITION, REMAINS IN RESTRAINTS. WILL CONTINUE TO FOLLOW POC.
--- NOTE | 2021-04-25 22:28 | NUR ---
2129-SPUTUM C&S SENT-LG AMT THIN, VERY BLOODY SPUTUM.--VW 2229-SPOKE Guy MARROQUIN NP RE:TEMP,NEED FOR TYLENOL, ? CX'S, ETC. WILL PUT IN ORDERS.--VW
[2021-04-26] VITALS (27 sets, daily range): BP systolic 113–197; BP diastolic 70–102
[2021-04-26 06:30] LABS: HEMATOCRIT 51.3 % (37.0-47.0); HEMOGLOBIN 16.4 gm/dL (12.0-15.0); MCH 26.2 pg (26.0-34.0); MCHC 31.9 g/dL (28.0-37.0); MCV 82.1 fL (80.0-100.0); PLATELET COUNT 132 thou/uL (150-400); RBC 6.25 mil/uL (4.20-5.00); RDW 16.1 % (10.5-14.5); WBC 2.8 thou/uL (4.0-11.0)
[2021-04-26 06:50] LABS: ALBUMIN 2.8 g/dL (3.4-5.0); CALCIUM 7.8 mg/dL (8.5-10.1); CREATININE 0.6 mg/dL (0.6-1.0); POTASSIUM 3.6 mmol/L (3.5-5.1); TOTAL BILIRUBIN 0.8 mg/dL (0.2-1.0); TOTAL PROTEIN 5.6 g/dL (6.4-8.2)
[2021-04-26 09:55] LABS: ABSOLUTE NEUTROPHILS 1.8 thou/uL (1.4-8.2)
[2021-04-26 09:56] LABS: ANISOCYTOSIS 1+
--- NOTE | 2021-04-26 10:31 | NUR ---
SPOKE WITH DAUGHTER AND , PROVIDED PATIENT UPDATE. ANSWERED ALL QUESTIONS AT THIS TIME.
--- NOTE | 2021-04-26 12:31 | NUR ---
poc blood glucsoe scanned on wrong patient by sohail RN - follow up glucose taken on correct patient account
--- NOTE | 2021-04-26 13:19 | NUR ---
NOTIFIED DR. ORANTES AND DR. SWENSON ON CONTINUED NOSE BLEED. ORDERS TO PLACE LOVENOX ON HOLD.
[2021-04-27] VITALS (14 sets, daily range): BP systolic 124–197; BP diastolic 88–113
--- NOTE | 2021-04-27 04:49 | NUR ---
Gina0-[facility] UPDATED.--VW NOT PROGRESSING TOWARD GOALS. BREAKS THRU SEDATION, MYNOR W MOUTH CARE. LG AMT OLD BLOOD W Q MOUTH SWAB. HI LO SX CONT'S TO PUT OUT DK BLOODY DRAINAGE. CLEARED SEV X'S THRU OUT SHIFT. MUSTACH DRSG INTACT,SL SHADOWING ONLY.CONT'S TO DESAT W ANY CARE GIVEN.LABS SENT.--VW
[2021-04-27 05:56] LABS: HEMATOCRIT 50.1 % (37.0-47.0); HEMOGLOBIN 15.8 gm/dL (12.0-15.0); MCH 26.1 pg (26.0-34.0); MCHC 31.4 g/dL (28.0-37.0); MCV 83.1 fL (80.0-100.0); RBC 6.03 mil/uL (4.20-5.00); RDW 16.4 % (10.5-14.5); WBC 3.5 thou/uL (4.0-11.0)
[2021-04-27 05:58] LABS: CALCIUM 7.8 mg/dL (8.5-10.1); CREATININE 0.6 mg/dL (0.6-1.0); POTASSIUM 3.7 mmol/L (3.5-5.1)
--- NOTE | 2021-04-27 14:55 | NUR ---
PT'S CALLED THIS MORNING WANTING UPDATES, RN PROVIDED UPDATES REGARDING CURRENT PT'S STATUS WELL CLINICAL PRESENTATION. PT'S VENTILATOR SETTING (1O0 FIO2/PEEP 12) EXPLAINED, WHEN ASKED WHY THE PNA ISN'T GOING AWAY, RN EXPLAINED COVID IS A VIRAL INFECTION. INTERDRY WAS PLACED IN THE PT'S PANUS, AT THE TIME OF INTERVENTION PT WAS LAID FLAT IN ORDER TO FACILITATE THE WEIGHT OF THE PANUS, PT WAS FOUND TO BECOME HYPOXIC AT THAT TIME DESATTING TO MID 80s THEN SLOW TO GET BACK UP, PT ALSO HAD A NON PRECEPITATED HYPOXIC EPISODE THIS MORNING. ORAL/NASAL BLEEDING APPEARS TO HAVE HALTED AT THIS TIME. SPOKE WITH MD, BELIEVES MAY BE RELATED TO EPISTAXIS, CONTINUING TUBE FEEDING PER FRONT OFFICE MEDICAL ASSISTANT RECOMMENDATIONS. PT HYGEINE KEPT BEST POSSIBLE GIVEN PT'S DIFFICULT SITUATION/SENSITIVITY TO MOVEMENT, PANUS WAS CLEANED, BREAST FOLDS WERE CLEANED BUT ASSESSING PT'S POSETERIOR SIDE IS PROVEN VERY DIFFICULT FOR THE MOMENT. GIVEN PT'S 100% FIO2 AND PEEP OF 12, SLOW TO GET O2 SAT BACK UP, SEDATION VACATION WAS NOT PERFORMED IN PRECAUTION OF BAROTRAUMA
[2021-04-28] VITALS (23 sets, daily range): BP systolic 107–174; BP diastolic 71–107
[2021-04-28 04:58] LABS: HEMOGLOBIN 16.2 gm/dL (12.0-15.0); MCH 26.3 pg (26.0-34.0); MCHC 31.8 g/dL (28.0-37.0); MCV 82.8 fL (80.0-100.0); RBC 6.16 mil/uL (4.20-5.00); RDW 16.5 % (10.5-14.5)
[2021-04-28 05:06] LABS: CALCIUM 7.7 mg/dL (8.5-10.1); CREATININE 0.6 mg/dL (0.6-1.0); POTASSIUM 4.2 mmol/L (3.5-5.1)
--- NOTE | 2021-04-28 12:33 | NUR ---
RN SPOKE WITH PT FAMILY. PT CALLED AND RN GAVE UPDATE AND ANSWERED AND QUESTIONS HE HAD. THERE WERE OTHER FAMILY MEMBERS ON THE PHONE LISTENING WELL. PT VENT AT 100% FIO2 SATTING 88-94%. PT NOT TOLERATING TURNS AT THIS TIME. RN READJUST PT. STARTED TUBE FEEDS AT 1100. STARTED RATE AT 10ML/HR. WILL MONITOR TO MAKE SURE PT IS TOLERATING TUBE FEEDS. DR SWENSON ORDERED BOWEL REGIMEN FOR PT SINCE NO BM SINCE 04/23. BELLY IS NOT FIRM. RN WILL CONTINUE TO MONITOR PT AND FOLLOW PLAN OF CARE
[2021-04-28 21:46] LABS: URINE BILIRUBIN NEGATIVE (Negative); URINE BLOOD NEGATIVE (Negative); URINE CLARITY CLEAR; URINE COLOR YELLOW; URINE GLUCOSE-RANDOM* NEGATIVE (Negative); URINE KETONES NEGATIVE (Negative); URINE LEUKOCYTES-REFLEX NEGATIVE (Negative); URINE NITRITE-REFLEX NEGATIVE (Negative); URINE PROTEIN (DIPSTICK) NEGATIVE (Negative); URINE SPECIFIC GRAVITY 1.025 (1.005-1.035)
[2021-04-29] VITALS (35 sets, daily range): BP systolic 107–149; BP diastolic 59–92
[2021-04-29 06:03] LABS: HEMATOCRIT 50.6 % (37.0-47.0); HEMOGLOBIN 15.8 gm/dL (12.0-15.0); MCH 26.2 pg (26.0-34.0); MCHC 31.3 g/dL (28.0-37.0); MCV 83.6 fL (80.0-100.0); RBC 6.05 mil/uL (4.20-5.00); WBC 10.8 thou/uL (4.0-11.0)
[2021-04-29 07:03] LABS: CALCIUM 7.8 mg/dL (8.5-10.1); CREATININE 0.8 mg/dL (0.6-1.0); POTASSIUM 4.4 mmol/L (3.5-5.1)
--- NOTE | 2021-04-29 20:05 | NUR ---
family updated. pt not tolerating turns at this moment. pt sedated with precedex, fentanyl and versed. pt on 100 fio2 and peep 14. no successful vent weaning today. pt spo2 at 93-94% throughout the day. urine output adequate. continue to monitor.
[2021-04-30] VITALS (48 sets, daily range): BP systolic 88–122; BP diastolic 48–69
--- NOTE | 2021-04-30 05:36 | NUR ---
PT REMAINS SEDATED WITH PRECEDEX, VERSED, AND FENTANYL. PRECEDEX GTT TITRATED DOWN SLIGHTLY; PT TOLERATED WELL WITH NO SIGNIFICANT CHANGE IN V/S OR RESP STATUS. TOLERING TF BETTER THIS SHIFT, WITH MOST RECENT RESIDUAL 200ML. TF RATE INCREASED TO 25ML/HR (GOAL RATE OF 45ML/HR). PT CONTINUES TO HAVE SMALL AMOUNT BLOOD-TINGED SECRETIONS FROM ETT. SOME BLOODY SECRETIONS NOTED IN BACK OF MOUTH WHEN ORAL CARE WAS PROVIDED. PT FEBRILE OVER NIGHT. TYLENOL GIVEN. ICE PACKS APPLIED TO AXILLA. WILL MONITOR FURTHER. NOT PROGRESSING WELL TOWARD POC GOALS.
[2021-04-30 05:41] LABS: HEMATOCRIT 47.3 % (37.0-47.0); HEMOGLOBIN 14.6 gm/dL (12.0-15.0); MCH 25.6 pg (26.0-34.0); MCHC 30.7 g/dL (28.0-37.0); MCV 83.2 fL (80.0-100.0); RBC 5.69 mil/uL (4.20-5.00); RDW 16.7 % (10.5-14.5); WBC 13.8 thou/uL (4.0-11.0)
[2021-04-30 05:45] LABS: CREATININE 0.7 mg/dL (0.6-1.0); POTASSIUM 4.7 mmol/L (3.5-5.1)
--- NOTE | 2021-04-30 09:30 | NUR ---
PLACED PT BACK IN BILATERAL SOFT WRIST RESTRAINTS AT 0900. PT IS BECOMING BORDERLINE HYPOTENSIVE AT THIS TIME AND MAY NEED TO START DECREASING SEDATION IN ORDER TO BRING BLOOD PRESSURE BACK UP OR START PT ON VASSOPRESSOR. WILL ATTEMPT TO DECREASE SOME SEDATION TO SEE IF RAISES BP, WILL ALSO ASK ABOUT DURING PT ROUNDING WELL. WILL CONTINUE TO MONITOR AND REASSESS BP AND NEED FOR RESTRAINTS. TUBE FEEDING ALSO TURNED DOWN TO 10ML/HR PT CONTINUES TO HAVE HIGH RESIDUALS WITH 350ML THIS MORNING AT A RATE OF 25ML/HR.
--- NOTE | 2021-04-30 12:14 | NUR ---
PT CONTINUES TO HAVE BRIGHT RED BLOOD COME UP VIA SUCTIONING THROGH THE INLINE SUCTION TUBING WELL BLOOD SECRECTIONS FROM MOUTH. PROVIDERS AWARE, LOVENOX ON HOLD. SCDS ARE ALSO OFF THE PATIENT DUE TO UNDERLYING HX OF PVD TO HER LOWER EXTREMITIES.
[2021-04-30 16:56] LABS: APTT 25.3 Seconds (24.5-32.8); D-DIMER 8.21 ug/mLFEU (0.19-0.50); INR 1.1; PROTIME 11.9 Seconds (10.5-12.1)
[2021-05-01] VITALS (48 sets, daily range): BP systolic 95–119; BP diastolic 55–71
[2021-05-01 05:05] LABS: HEMATOCRIT 45.3 % (37.0-47.0); HEMOGLOBIN 13.8 gm/dL (12.0-15.0); MCH 25.7 pg (26.0-34.0); MCHC 30.4 g/dL (28.0-37.0); MCV 84.5 fL (80.0-100.0); RBC 5.35 mil/uL (4.20-5.00); RDW 16.6 % (10.5-14.5); WBC 15.5 thou/uL (4.0-11.0)
[2021-05-01 05:06] LABS: CALCIUM 7.7 mg/dL (8.5-10.1); CREATININE 0.8 mg/dL (0.6-1.0); POTASSIUM 4.3 mmol/L (3.5-5.1)
--- NOTE | 2021-05-01 07:25 | NUR ---
pt is slowly progressing towards plan of care as evidenced by minimal motor response and ability to open her eyes. pt does not however follow commands. she is still vent dependent for o2 support.
--- NOTE | 2021-05-01 21:59 | NUR ---
Pt's , Camden Mendez, called at 2100, he was updated about the pt's condition, and educated on her plan of care.
[2021-05-02] VITALS (22 sets, daily range): BP systolic 110–151; BP diastolic 58–92
[2021-05-02 05:21] LABS: CALCIUM 8.2 mg/dL (8.5-10.1); CREATININE 0.6 mg/dL (0.6-1.0); POTASSIUM 4.5 mmol/L (3.5-5.1)
[2021-05-02 05:23] LABS: HEMATOCRIT 44.3 % (37.0-47.0); HEMOGLOBIN 13.8 gm/dL (12.0-15.0); MCH 26.4 pg (26.0-34.0); MCHC 31.3 g/dL (28.0-37.0); MCV 84.2 fL (80.0-100.0); RBC 5.26 mil/uL (4.20-5.00); RDW 17.3 % (10.5-14.5); WBC 13.3 thou/uL (4.0-11.0)
--- NOTE | 2021-05-02 07:10 | NUR ---
pt is not progressing towards plan of care as evidenced by inability to tolerate turns. pt opens eyes. +ve cough/gag reflex. minimal blood tinged secretions upon oral care and suction. pt does not follow command. pt is still mechanical support dependent for optimal o2 saturation
--- NOTE | 2021-05-02 16:43 | NUR ---
Case discussed with the care team and [employer]. Pt's spouse was updated this am and family has been checking on her daily. Pt continues to need 95%FIO2 and a peep of 14 (vent support). She remains in enhanced ISO. Message sent to the attending request physician call to pt's spouse with update. Dc planning needs are uncertain at this time. Will continue to follow for support.
--- NOTE | 2021-05-02 20:43 | NUR ---
Pt's daughter, Roxie Mendez and , Camden Mendez called at 1999. They were updated on the pt's condition and her plan of care. They expressed desire to come visit the pt tomorrow 05/03/21, since the pt will be out of isolation.
[2021-05-03] VITALS (20 sets, daily range): BP systolic 110–147; BP diastolic 67–91
[2021-05-03 06:01] LABS: HEMATOCRIT 47.4 % (37.0-47.0); HEMOGLOBIN 14.7 gm/dL (12.0-15.0); MCH 26.3 pg (26.0-34.0); MCV 84.8 fL (80.0-100.0); RBC 5.6 mil/uL (4.20-5.00); RDW 16.5 % (10.5-14.5)
[2021-05-03 06:26] LABS: CALCIUM 8.4 mg/dL (8.5-10.1); CREATININE 0.5 mg/dL (0.6-1.0); POTASSIUM 4.1 mmol/L (3.5-5.1)
--- NOTE | 2021-05-03 10:43 | NUR ---
CALLED AND SPOKE TO THE FAMILY THIS MORNING AT 1030, SPOKE TO AND DAUGHTER VIA THE PHONE. DISCUSSED WITH THE FAMILY THAT IT IS STILL TOO SOON FOR THEM TO COME AND VISIT AT THIS TIME THEY WERE TOLD THEY COULD COME AND VISIT TODAY. ACCORDING TO PROTOCOL PT IS TO REMAIN IN ISOLATION FOR 21 DAYS AFTER TESTING POSITIVE. PT TESTED POSITIVE 04/19 AND SHOULD REACH THE 21 DAY FREDDIE 05/09. FAMILY WAS UNDERSTANDING. PROVIDED UPDATES TO THE FAMILY. WILL CONTINUE TO FOLLOW POC.
--- NOTE | 2021-05-03 16:27 | NUR ---
PT NOT PROGRESSING TOWARDS DISCHARGE GOALS. CONTINUES TO BLEED AFTER SUCTIONING. PT ALSO CONTINUES TO HAVE HIGH RESIDUALS FROM HER TUBE FEEDS WHICH HAVE A GOAL RATE OF 45 HOWEVER, HAVE ONLY BEEN ABLE TO RUN AT RATE OF 20-25ML/HR WITH RESIDUALS RANGING BETWEEN 250-400. PT PRESENTLY TOLERATING TIRTRATING VENTILATOR FIO2 TO 80% WITH OXYGEN SATURATION OF 95%.
--- NOTE | 2021-05-03 17:58 | NUR ---
WHILE TURNING AND CLEANING PATIENT THIS EVENING NOTICED PT IS STARTING TO DEVELOP SMALL SKIN TEARS TO THE LOWER BACK/TAILBONE. ANTISEPTIC SPRAY APPLIED AND BARRIER CREAM ALSO APPLIED TO THE SITE. PT ALSO APPEARS TO BE MENSTRATING AT THIS TIME BLOOD APPEARED TO BE COMING FROM VAGINA AREA. ALSO SAID EARLIER THIS MORNING OVER THE PHONE PT HAD HAD HEMORRHOIDS PRIOR TO HOSPITAL ADMISSION. WILL PASS ALONG ALL FINDINGS TO BOX LINER RN.
[2021-05-04] VITALS (24 sets, daily range): BP systolic 110–157; BP diastolic 68–90
--- NOTE | 2021-05-04 04:45 | NUR ---
NOTED BLOOD DURING TURN AROUND VAGINAL AREA. DAY SHIFT NURSE ALSO NOTED SMALL AMOUNT OF BLOOD IN SAME AREA.
[2021-05-04 05:14] LABS: HEMATOCRIT 44.7 % (37.0-47.0); HEMOGLOBIN 13.6 gm/dL (12.0-15.0); MCH 25.8 pg (26.0-34.0); MCHC 30.5 g/dL (28.0-37.0); MCV 84.6 fL (80.0-100.0); RBC 5.29 mil/uL (4.20-5.00); RDW 16.7 % (10.5-14.5); WBC 11.7 thou/uL (4.0-11.0)
[2021-05-04 05:23] LABS: ALBUMIN 2.7 g/dL (3.4-5.0); CALCIUM 8.4 mg/dL (8.5-10.1); CREATININE 0.6 mg/dL (0.6-1.0); PHOSPHORUS 4.7 mg/dL (2.5-4.9); POTASSIUM 4.1 mmol/L (3.5-5.1)
--- NOTE | 2021-05-04 10:58 | NUR ---
WHILE TURNING THE PATIENT, APPLIED ANTISEPTIC SPRAY TO LOWER BACK AND REAR END CLEANING THE AREA. APPLIED BARRIER CREAM TO SKIN ABRASIONS AND COVERED THE AREAS WITH FOAM ADHESIVE DRESSINGS. WILL ALSO PLACE WOUND CONSULT SO THEY ARE AWARE.
--- NOTE | 2021-05-04 13:41 | NUR ---
PT RESPIRATIONS HAVE INCREASED TO MID 30-40'S RANGE, PATIENT HAS BILATERAL BREATH SOUNDS, OXYGEN SATURATION IS PRESENTLY 93% ON FIO2 OF 80% PEEP 14. INCREASED SEDATION OF FENTANYL FROM 100MCG TO 125MCG/HR PATIENT IS SPONTANOUSLY LOOKING AROUND WITH EYES OPEN. ALL OTHER SEDATION REMAINS THE SAME PRESENTLY.
--- NOTE | 2021-05-04 14:54 | NUR ---
SPOKE WITH THE PATIENTS (LUCITA) PROVIDED UPDATES TO HIM AT 1445 TODAY.
--- NOTE | 2021-05-04 15:28 | NUR ---
WOUND CARE MD STOPPED BY AT 1500 TO ASSESS PATIENT SACRAL AREA, HEAVY BARRIER CREAM AND ADHESIVE FOAM PADDING TO BE PLACED ON THE AREA, PT CONTINUES TO BLEED WITH SUCTIONING. PT ALSO COUGHED UP BLOOD BACK UP INTO VENT CIRCUIT.
[2021-05-05] VITALS (27 sets, daily range): BP systolic 116–180; BP diastolic 50–105
[2021-05-05 04:53] LABS: CALCIUM 8.5 mg/dL (8.5-10.1); CREATININE 0.5 mg/dL (0.6-1.0); POTASSIUM 4.5 mmol/L (3.5-5.1)
[2021-05-05 05:02] LABS: HEMATOCRIT 43.1 % (37.0-47.0); HEMOGLOBIN 13.2 gm/dL (12.0-15.0); MCH 26.2 pg (26.0-34.0); MCHC 30.8 g/dL (28.0-37.0); MCV 85.2 fL (80.0-100.0); RBC 5.05 mil/uL (4.20-5.00); RDW 16.6 % (10.5-14.5); WBC 10.9 thou/uL (4.0-11.0)
--- NOTE | 2021-05-05 08:02 | NUR ---
PT NOT PROGRESSING TOWARD GOALS OR POC. PATIENT 02 SATS OVERNOC RANGED BTWN 88-94% WITH FI02 AT 100% MOST OF THE NOC. PATIENT REQUIRED INCREASED SEDATION DUE TO OVERBREATHING THE VENT, HTN, TACHYCARDIC. REPOSITIONING DOES SEEM TO HELP INCREASE SATs. BLOOD-TINGED SECRETIONS IN-LINE BUT MINIMAL SECRETIONS OVERALL. NSR / ST AT TIMES. WILL CONTINUE TO MONITOR AND FOLLOW POC.
[2021-05-05 09:57] LABS: BE(vivo) 9.8 mmol/L (-2 to +3); HCO3 37.4 mmol/L (22.0-26.0); PCO2 63.4 mmHg (35.0-45.0); PO2 52.1 mmHg (80.0-100.0); pH 7.389 (7.360-7.450); sO2 85.4 % (92.0-98.0)
--- NOTE | 2021-05-05 10:43 | NUR ---
BLOOD GAS DRAWN ON PATIENT THIS MORNING. CRITICAL LOW PO2 LEVEL RETURNED WITH PO2 LEVEL OF 52.1. RT MARYAM COMMUNICATED WITH DR. BAKER RESULTS AND CONFERRED WITH RN TO TURN UP FIO2 ON VENTILATOR FROM 90% TO 100%. WILL CONTINUE TO FOLLOW POC.
--- NOTE | 2021-05-05 10:54 | NUR ---
PT CONTINUES TO MAINTAIN OXYGEN SATURATION BETWEEN 87-90% DESPITE BEING ON FIO2 OF 100% AND PEEP OF 14. LUNGS COARSE BILATERALLY, BLEEDING STILL PRESENT VIA ET TUBE HOWEVER IT IS DARK IN COLOR AND APPEARS TO BE OLD BLOOD. PROVIDERS AWARE OF OXYGENATION AND BLOOD APPEARING DURING SUCTIONING. PT NOT PROGRESSING TOWARDS D/C GOALS. WILL CONTINUE TO FOLLOW POC.
--- NOTE | 2021-05-05 13:48 | NUR ---
CALLED DR. BAKER AT 1340 INFORMED HIM THAT PATIENT CONTINUES TO DESAT (NOW AT 84%), INSTRUCTED TO TURN PEEP TO 16, REPEAT ABG. I ALSO REORDERED ANOTHER CXR TO ENSURE NO CHANGES HAVE OCCURED SINCE THIS MORNING'S CXR. RT WAS ALSO INSTRUCTED TO TRY PRESSURE CONTROL MODE ON THE VENTILATOR TO SEE IF THAT IMPROVES OXYGENATION. WILL CONTINUE TO FOLLOW POC AND CONTINUE TO MONITOR AND REASSESS.
--- NOTE | 2021-05-05 14:30 | NUR ---
PT SWITCHED TO PRESSURE CONTROL MODE AT 1400 SETTINGS PC 30 RATE 24, PEEP 16, 100% FIO2. CXR COMPLETED AT 1430. BLOOD GAS TO BE REDRAWN BY RT AT 1500.
[2021-05-05 15:08] LABS: BE(vivo) 9.6 mmol/L (-2 to +3); HCO3 37.1 mmol/L (22.0-26.0); PCO2 62.5 mmHg (35.0-45.0); pH 7.391 (7.360-7.450); sO2 85.7 % (92.0-98.0)
[2021-05-05 15:09] LABS: PO2 52.3 mmHg (80.0-100.0)
[2021-05-05 16:27] LABS: BE(vivo) 9.1 mmol/L (-2 to +3); HCO3 37.6 mmol/L (22.0-26.0); PCO2 69.2 mmHg (35.0-45.0); PO2 62.7 mmHg (80.0-100.0); pH 7.353 (7.360-7.450); sO2 90.2 % (92.0-98.0)
--- NOTE | 2021-05-05 17:33 | NUR ---
SPOKE TO AND DAUGHTER OVER THE PHONE THIS AFTERNOON AROUND 1700. INFORMED THEM OF THE CRITICAL NATURE OF THE PATIENT, ANSWERED QUESTIONS REGARDING PATIENTS OXYGENATION AND THE NEED TO ADJUST SETTINGS ON HER VENTILATOR.
[2021-05-06] VITALS (23 sets, daily range): BP systolic 131–179; BP diastolic 82–97
--- NOTE | 2021-05-06 | NUR ---
PT TUBE FEED RESIDUAL 500 ML. WILL HOLD TUBE FEED PER PROTOCOL AND WILL RECHECK PRIOR TO RESTARTING.
--- NOTE | 2021-05-06 07:00 | NUR ---
PT NOT PROGRESSING TOWARD PLAN OF CARE - PT REQUIRING APRV MODE ON VENT, MAINTAINED SATs ABOVE 92% FOR MOST OF THE NOC. PT DESATs WITH TURNS AND MOVEMENT AND TAKES TIME TO RETURN TO OPTIMAL 02 SAT. PATIENT IN-LINE AND SUBGLOTTIC SECRETIONS MINIMAL AND BLOODY. PT NOT TOLERATING INCREASES IN TF RATE TO MEET GOAL. PRAFO BOOTS ON. WILL CONTINUE TO MONITOR.
--- NOTE | 2021-05-06 08:57 | HC ---
[facility] [place] [address] CONSULTATION Name: REINALDO HANKS Room #: 243-P [facility] IN M.R.#: [id number] Admission: 04/20/21 Attend Phys: Syeda Cary MD Discharge: Date of : 66 Report #: [id number] THIS REPORT FOR: cc: Stan Rebolledo MD, Kirk D. MD [place], Allen B. MD ~ DATE OF SERVICE: 05/04/2021 WOUND CARE CONSULTATION NOTE REASON FOR CONSULTATION: Sacral gluteal pressure sores in a super morbidly obese woman with respiratory failure, COVID-19, immobile, on mechanical ventilation. HISTORY OF PRESENT ILLNESS: The patient is a 51-year-old woman admitted to [facility] with respiratory failure, COVID-19 on 04/19. She is currently in the Intensive Care Unit on mechanical endotracheal intubation on the ventilator with immobility. I am consulted due to sacral pressure sores noted. PAST MEDICAL HISTORY: Super morbid obesity with alveolar hypoventilation, hypertension, congestive heart failure, sleep apnea, former 10-year pack year smoker history. ALLERGIES: None known. LABORATORY DATA: Albumin 3.2. Mild protein calorie malnutrition. PHYSICAL EXAMINATION: GENERAL: Shows a super morbidly obese woman, sedated on mechanical ventilation via endotracheal intubation, on ventilator. HEENT: Sclerae are white. ABDOMEN: Super morbidly obese. EXTREMITIES: Lower extremities show hemosiderin pigmentation changes indicative of chronic venous stasis in the left lower leg and foot and right lower leg without any open wound. BACK: Examination of the patient's back shows small 1.5 cm x 0.8 cm stage III sacral pressure sore over the coccyx. There is a stage III pressure sore measuring 3 x 3 cm composite, which is superficial on the right buttock. Barrier cream and sacral Mepilex were applied. The patient is on a low air loss mattress. IMPRESSION: 1. Super morbid obesity with COVID pneumonia, on mechanical ventilation. 2. Immobility. 3. Congestive heart failure. [facility] [address] [place] [address] CONSULTATION Name: LATONYAREINALDO Shanice Room #: 243-P [facility] IN ..#: [id number] Admission: 04/20/21 Attend Phys: Syeda Cary MD Discharge: Date of : 66 Report #: [id number] 4. Venous stasis, lower extremity without wound. 5. Small sacral stage III pressure ulcer. 6. Right gluteal stage III pressure ulcer. WOUND CARE PLAN: Offload with low air loss mattress, barrier cream to the sacral and gluteal area daily. Offload with sacral Mepilex. Wound care team will follow. <ELECTRONICALLY SIGNED> By: Agus Garcia MD 05/06/21 0857 1418 42 Agus Garcia MD /nt
--- NOTE | 2021-05-06 16:30 | NUR ---
OUT OF ENHANCED PRECAUTIONS PER I.D. ORDER.--VW
--- NOTE | 2021-05-06 16:34 | NUR ---
PT REMAINS ON VENT FIO2 100% PEEP 16. HOSPITALIST TO SPEAK WITH SPOUSE RELATED TO TRACH/PEG. PT ON VANC AND FLUCONAZOLE. PT WAS TO HAVE A BRONCH THIS DAY. CM FOLLOWING.
--- NOTE | 2021-05-06 19:41 | NUR ---
PT DOES NOT SEEM TO BE PROGRESSING TOWARD GOALS. PT VENT REMAINS ON APRV AT 100% FIO2. PT WAS BRONCHED TODAY BY DR. BAKER AND HAD BLOOD-TINGED SPUTUM OUTPUT. CVP WAS STARTED AT [address] BAKER PLACED AN ARTERIAL LINE AT 1030 POST-BRONCH. FLOTRACK MONITORING WAS ALSO STARTED. PT HAD HIGH RESIDUALS THROUGHOUT THE SHIFT AND TF IS RUNNING AT 10CC/HR (GOAL 45CC/HR). PT HAS NOT HAD A BM SINCE 05/02. THIS RN TALKED TO PT'S LUCITA AT 1330 AND GAVE HIM UPDATES REGARDING PT'S STATUS. PER ORDERS, PT WAS ABLE TO COME OUT OF COVID ISOLATION 05/03. PT WAS TAKEN OUT OF ISOLATION AT 1545. THIS RN CALLED LUCITA TO UPDATE HIM REGARDING PT'S ISOLATION STATUS. LUCITA WAS AT BEDSIDE FROM 1700 UNTIL 1800. THIS RN EDUCATED ON PT'S EQUIPMENT, MEDICATION, AND PLAN OF CARE. LUCITA STATED THAT HE WOULD BE BACK TOMORROW IF HE GOT OFF WORK IN TIME. AT 1355, THIS RN SPOKE TO SIA ABOUT INITIATING DISCUSSIONS WITH PT'S . SIA STATED THAT SHE WOULD BE BY TO SEE THE PT TOMORROW AND WILL TALK TO PT'S TOMORROW WELL. WILL CONTINUE TO MONITOR AND FOLLOW POC.
[2021-05-07] VITALS: BP 151/94
[2021-05-07 04:00] VITALS: BP 151/93
[2021-05-07 04:45] LABS: CALCIUM 8.2 mg/dL (8.5-10.1); CREATININE 0.5 mg/dL (0.6-1.0); PHOSPHORUS 3.1 mg/dL (2.5-4.9); POTASSIUM 4.4 mmol/L (3.5-5.1)
[2021-05-07 08:00] VITALS: BP 124/78
--- NOTE | 2021-05-07 12:14 | NUR ---
Case discussed with the care team. Pt remains on the vent on 100%FIO2 with peep of 16. Not ready for trach and peg or vent weaning. Palliative care consult in progress to discuss goals of care with spouse. Spouse here yesterday now that pt is out of covid ISO. DC timeframe and needs are uncertain at this time. Will follow.
--- NOTE | 2021-05-07 19:00 | NUR ---
PT FAMILY AT BEDSIDE AT END OF SHIFT, AND DAUGHTER HARRIET. DISCUSSED PT CONDITION, EXPLAINED MACHINES AT BEDSIDE AND THEIR FUNCTION FOR PT. MONITORING FLOTRAC #S Q1H, ART LINE IN PLACE, 1X PRN METOPROLOL NEEDED FOR SBP>160. PT TOLERATING TURNS, CONTINUED VENT SETTINGS. MINIMAL STOOL OUTPUT. MORE THAN ADEQUATE UOP. PT REMAINS CRITICALLY ILL AND NOT PROGRESSING TOWARDS GOALS. UNABLE TO REACH PALLIATIVE CARE TEAM WHEN FAMILY ARRIVED.
--- NOTE | 2021-05-08 08:22 | NUR ---
ASSUMED CARE OF PT AT 0700
--- NOTE | 2021-05-08 10:08 | PATH ---
[facility] [address] [place] [address] PATHOLOGY RPT PROCEDURE Name: REINALDO HANKS Room #: 243-P ADM IN M.R.#: [id number] Admission: 04/20/21 Date of : 66 Discharge: Report #: [id number] Path Case #: [id number] Note [facility] Accession Number: [id number] TESTS RESULT FLAG UNITS REF RANGE LAB Clinician Provided Cytology Information No. of containers..01 Other (Miscellaneous) Source: BAL-LLL DIAGNOSIS: BAL-LLL NEGATIVE FOR MALIGNANT CELLS. BRONCHIAL AND INFLAMMATORY CELLS ARE PRESENT. Signed out by: 02 Tang Samayoa MD, Pathologist NPI- [id number] Performed by: 01 Edda Jacinto, [place] ([facility]) Gross description: 01 15ML, RED, CLOUDY /LCS 05/06/2021 1612 Local FLAG LEGEND: L-Low Normal,H-High Normal,LL-Alert Low,HH-Alert High <-Panic Low,>-Panic High,A-Abnormal,AA-Critical Abnormal Performed at: [address] [place] [address] Manoj Mendoza MD, [address] [address] Tang Samayoa MD, Specimen Comment: A courtesy copy of this report has been sent to [phone] Specimen Comment: Report sent to Specimen Comment: A duplicate report has been generated due to demographic updates. Performed at: [address], [place], [place] [id number] MD Manoj Mendoza MD Phone: [phone]
--- NOTE | 2021-05-08 15:01 | NUR ---
Palliative care RESOLUTION AGENT has given her number to pt's spouse to call back to schedule a time to meet as he was working when she called him. She will try hime again as palliative care is not available after hours.
[2021-05-09 10:30] LABS: BE(vivo) 8.6 mmol/L (-2 to +3); HCO3 35.4 mmol/L (22.0-26.0); PCO2 59.1 mmHg (35.0-45.0); PO2 59.7 mmHg (80.0-100.0); pH 7.395 (7.360-7.450); sO2 90.1 % (92.0-98.0)
[2021-05-10 01:28] LABS: URINE BILIRUBIN NEGATIVE (Negative); URINE BLOOD 3+ (Negative); URINE CLARITY CLEAR; URINE COLOR YELLOW; URINE GLUCOSE-RANDOM* NEGATIVE (Negative); URINE KETONES NEGATIVE (Negative); URINE LEUKOCYTES-REFLEX NEGATIVE (Negative); URINE NITRITE-REFLEX NEGATIVE (Negative); URINE PROTEIN (DIPSTICK) 1+ (Negative); URINE SPECIFIC GRAVITY 1.025 (1.005-1.035)
[2021-05-10 02:08] LABS: BACTERIA-REFLEX 1-9 Few /HPF (None Seen); CRYSTALS None Seen /LPF (None Seen); HYALINE CASTS 0-3 Few /LPF (None Seen); MUCUS 4-6 Moderate strn/LPF (None Seen); SQUAMOUS 0-3 Few /LPF (0-3); URINE WBC-REFLEX 0-5 Rare /HPF (0-5)
[2021-05-10 04:28] LABS: PCO2 54.8 mmHg (35.0-45.0); PO2 56.3 mmHg (80.0-100.0); pH 7.435 (7.360-7.450); sO2 89.6 % (92.0-98.0)
[2021-05-10 06:43] LABS: HEMATOCRIT 34.3 % (37.0-47.0); HEMOGLOBIN 10.9 gm/dL (12.0-15.0); MCH 26.1 pg (26.0-34.0); MCHC 31.8 g/dL (28.0-37.0); MCV 82.3 fL (80.0-100.0); PLATELET COUNT 181 thou/uL (150-400); RBC 4.17 mil/uL (4.20-5.00); RDW 17.1 % (10.5-14.5)
[2021-05-10 07:05] LABS: ALBUMIN 2.8 g/dL (3.4-5.0); CALCIUM 7.9 mg/dL (8.5-10.1); CREATININE 0.5 mg/dL (0.6-1.0); MAGNESIUM 2.1 mg/dL (1.8-2.4); PHOSPHORUS 2.4 mg/dL (2.5-4.9); POTASSIUM 5.1 mmol/L (3.5-5.1); TOTAL BILIRUBIN 1.2 mg/dL (0.2-1.0); TOTAL PROTEIN 5.2 g/dL (6.4-8.2)
[2021-05-10 10:31] LABS: ABSOLUTE NEUTROPHILS 12.2 thou/uL (1.4-8.2); METAMYELOCYTES 4 %
[2021-05-10 10:32] LABS: ANISOCYTOSIS 1+
--- NOTE | 2021-05-10 12:46 | NUR ---
DR BAKER called at 1246 pm to let him know pt is desatting to 81% and for further ordrs
[2021-05-10 19:29] VITALS: BP 90/46
--- NOTE | 2021-05-11 01:51 | NUR ---
CALLED AND TALKED TO THE DOCTOR USED CAR SALESPERSON ABOUT PATIENT MAP GOING BETWEEN 63 AND 64. ALSO TOLD THE THAT HER HEART LOOK TO BE TRYING TO GO IN TO AFIB.
[2021-05-11 04:14] VITALS: BP 82/48
[2021-05-11 07:11] LABS: HEMATOCRIT 34.1 % (37.0-47.0); HEMOGLOBIN 10.4 gm/dL (12.0-15.0); MCH 25.7 pg (26.0-34.0); MCHC 30.4 g/dL (28.0-37.0); MCV 84.6 fL (80.0-100.0); PLATELET COUNT 151 thou/uL (150-400); RBC 4.03 mil/uL (4.20-5.00); RDW 17.5 % (10.5-14.5); WBC 21.3 thou/uL (4.0-11.0)
[2021-05-11 07:46] LABS: ALBUMIN 2.9 g/dL (3.4-5.0); CALCIUM 7.8 mg/dL (8.5-10.1); CREATININE 0.6 mg/dL (0.6-1.0); POTASSIUM 4.5 mmol/L (3.5-5.1); TOTAL PROTEIN 5.2 g/dL (6.4-8.2)
[2021-05-11 09:09] LABS: ABSOLUTE NEUTROPHILS 20.2 thou/uL (1.4-8.2); METAMYELOCYTES 1 %; MYELOCYTES 1 %
[2021-05-11 09:10] LABS: ANISOCYTOSIS 1+
[2021-05-11 09:45] LABS: URINE BILIRUBIN NEGATIVE (Negative); URINE BLOOD 3+ (Negative); URINE GLUCOSE-RANDOM* NEGATIVE (Negative); URINE KETONES NEGATIVE (Negative); URINE LEUKOCYTES-REFLEX NEGATIVE (Negative); URINE NITRITE-REFLEX NEGATIVE (Negative); URINE PROTEIN (DIPSTICK) 1+ (Negative); URINE SPECIFIC GRAVITY 1.025 (1.005-1.035); URINE UROBILINOGEN 0.2 E.U./dl (0.2-1.0)
[2021-05-11 09:46] LABS: URINE CLARITY CLOUDY; URINE COLOR DK YELLOW
[2021-05-11 09:49] LABS: SQUAMOUS 0-3 Few /LPF (0-3)
[2021-05-11 09:52] LABS: COARSE GRANULAR CASTS 4-10 Moderate /LPF (None Seen); RBC CASTS 0-3 Few /LPF (None Seen); WBC CASTS 0-3 Few /LPF (None Seen)
[2021-05-11 09:53] LABS: MUCUS >6 Heavy strn/LPF (None Seen)
[2021-05-11 09:54] LABS: BACTERIA-REFLEX 1-9 Few /HPF (None Seen); CRYSTALS None Seen /LPF (None Seen); URINE RBC >20 Many /HPF (NONE SEEN)
--- NOTE | 2021-05-11 09:55 | NUR ---
Pt turned to her side. Pt quickly desat to 62 % and pt's face turned blue. Pt's back was cleaned. RT Jeremy at bedside. Pt spo2 back upto 82% now.
--- NOTE | 2021-05-11 11:15 | EKG ---
[place] [address] [facility] [address] [place] [address] ELECTROCARDIOGRAM REPORT Name: REINALDO HANKS Room #: 243-P ADM IN M.R.#: [id number] Admission: 04/20/21 Attend Phys: Syeda Cary MD Discharge: Date of : 66 Report #: [id number] [facility] Test Date: 2021-05-11 Test Time: 02:08:09 Pat Name: REINALDO HANKS Department: Room: 243 Gender: F Rod Mill Tender: SAVANNA : 1970 Requested By: Rola Medel Order Number: [id number] MD: James Mejia Measurements Intervals [place] Rate: 86 P: 36 SC: 148 QRS: 73 QRSD: 95 T: 35 QT: 349 QTc: 418 Interpretive Statements Sinus rhythm Nonspecific ST and T wave abnormality Compared to ECG 04/20/2021 11:43:26 Poor R wave progression no longer present Electronically Signed On 05-11-2021 11:15:00 RETAIL DEPARTMENT RESET by James Mejia [email or web address] <ELECTRONICALLY SIGNED> By: James Mejia MD, [facility] 05/11/21 1115 0208 0208 James Mejia MD, FACC /EPI
--- NOTE | 2021-05-12 06:38 | NUR ---
pt is not progressing towards POC as evidenced by inability to tolerate sedation vacation, and desaturation upon stumulation i.e turns and suctioning. pt is still dependent on mechanical vent for 02 saturation.
--- NOTE | 2021-05-12 15:57 | NUR ---
Case discussed in ICU rounds. Pt desating with any movement or stimulation. The palliative CONTROLLER COAL OR ORE spoke with pt's spouse/dtr and pt is now a DNR. They wish to continue aggressive tx at this time to see if she can improve but understand her outlook is poor. Pt is on the vent 100%FIO2 with high peep. Will follow.
--- NOTE | 2021-05-13 00:25 | NUR ---
assumed care for pt at 1900, pt was hypotensive on art-line reading, no reading could be obtained from bp cuff. pt saturation started dropping at the same time, until no more reading could read through the moninitor. all sedation gtts were turned of. levophed gtt was infusing at 1 mcg/kg/min. Dr Mora was called and notified of pt's condition. new of vasopressin and neosynephrine were obrtained. pt's Camden Mendez was called notified about the pt's condition. pt's family stated that they would be coming to the facility to see the pt right away. pt's conditions continued to deteriorate. pt at 2014. rn called pt's 's cellphone and spoke to Camden mendez () and Roxie mendez (dtr). pt's family arrived at the facility at 2027. all consults were called and notified of occurence. MTN was called at 2037 and a referral number was obtained as documented. MTN will continued talking to the family about possible tissue&eye donation. no home was provided at this time. pt did not have any personal belongings with her. all nursing summary worksheet items completed as charted.
== END 2021-05-12 20:15 | DRG 870 ==
LOC: ER 19:18 → 3W 04-20 05:09 → EROBS 04-20 05:09 → ICU 04-20 05:09 → 3W 04-20 21:08 → ICU 04-24 02:37
PROVIDERS: Emergency Medicine; Hospitalist; Internal Medicine Pulmonary Disease; Nurse Practitioner Family; Pediatrics; Specialist; ADMIT Internal Medicine; ATTEND Internal Medicine
DX: A41.89 Other specified sepsis (principal); U07.1 COVID-19; L89.153 Pressure ulcer of sacral region, stage 3; J12.82 Pneumonia due to coronavirus disease 2019; J96.21 Acute and chronic respiratory failure with hypoxia; J15.5 Pneumonia due to Escherichia coli; I50.30 Unspecified diastolic (congestive) heart failure; E44.1 Mild protein-calorie malnutrition; Z68.45 Body mass index [BMI] 70 or greater, adult; N17.9 Acute kidney failure, unspecified; E87.0 Hyperosmolality and hypernatremia; R65.20 Severe sepsis without septic shock; F41.9 Anxiety disorder, unspecified; I73.9 Peripheral vascular disease, unspecified; Z66 Do not resuscitate; E87.5 Hyperkalemia; I11.0 Hypertensive heart disease with heart failure; E66.01 Morbid (severe) obesity due to excess calories
CPT/HCPCS: 10078; 10879; 27000; 65040; 85026